=== PATIENT | female | born 1985 | race Caucasian/White ===

== ENCOUNTER 2018-01-02 21:11 | Emergency (ER) | payer MEDICAID ==
[~2018-01-02] VITALS: Ht 162.6 cm; Wt 113.2 kg
[~2018-01-02 21:11] MED LIST: AMOX-419 PO
[2018-01-02] MEDS ORDERED: normal saline 1000ML IV soln IVB ONE (22:20)
[2018-01-02] MEDS ORDERED: thiamine 100mg/ml 2ml inj. IV ONE (22:20)
[2018-01-02] MEDS ORDERED: folic acid 1mg/0.2ml inj IV ONE (22:20)
[2018-01-02] MEDS ORDERED: ondansetron/PF 4mg/2ml inj IV ONE (22:20)
[2018-01-02 23:06] VITALS: BP 115/79
== END 2018-01-02 23:09 | disposition home or self-care (01) ==
LOC: ER 21:13
DX: F10.10 Alcohol abuse, uncomplicated (principal); F15.10 Other stimulant abuse, uncomplicated; E86.0 Dehydration; E03.9 Hypothyroidism, unspecified; Z59.0 Homelessness; Z88.8 Allergy status to other drugs, medicaments and biological substances; Z88.5 Allergy status to narcotic agent; Z79.899 Other long term (current) drug therapy; Y90.9 Presence of alcohol in blood, level not specified
CPT/HCPCS: 96361; 96374; 96375; 99284; J2405; J3411; J3490; J7030